=== PATIENT | female | born 1945 | race Caucasian/White ===

== ENCOUNTER 2020-10-14 03:50 | Outpatient (RCR) | payer MEDICARE, OTHER, SELFPAY ==
[2020-10-14] MEDS: COVID-19 VACC, MRNA(PFIZER)/PF 30 MCG/0.3 ML SYRINGE IM (17:06)
[2020-11-04] MEDS: COVID-19 VACC, MRNA(PFIZER)/PF 30 MCG/0.3 ML SYRINGE IM (17:31)
== END 2021-01-18 23:59 ==
LOC: IMMUN 03:50
PROVIDERS: PCP Family Medicine; Visit Provider Family Medicine
DX: Z23 Encounter for immunization (principal)
CPT/HCPCS: 0001A; 0002A; 91300

== ENCOUNTER 2021-09-21 10:30 | Outpatient (RCR) | payer MEDICARE, OTHER, SELFPAY ==
--- NOTE | 2021-07-20 11:15 | HP.PTEVAL ---
Patient's Visit Information FLETCHER ALEJANDRO is a 75 year old F referred to Physical Therapy by Morgan Cabral MD with a diagnosis of Right Shoulder Pain. Date of Evaluation: 07/20/21 Physical Therapist: Cassi Natarajan DPT - Visit Plan Frequency: 2x /Week Duration: 4 Weeks Plan: Right Shoulder- focus on scapular s/s, pain free ROM and ultrasound as modality of choice. HEP Given IE: Postural education, scapular retractions, Wall [place] - Subjective Patient reports that she is unsure if its her cervical spine or her shoulder. She reports pain in the right shoulder since the second injection of COVID. She was diagnosed with RA when she was 25 years old. 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 She had full open heart surgery at 54 years old. Pain is located on the AC joint but the pain that keeps her awake is through the deltoid. Pain radiates to the 3rd and 4th fingers on the right hand. N/T comes and goes. Describes the pain in her shoulder as sharp/shooting. Worst: 8/10 Agg: lifting overhead, sleeping, reaching, driving. Best: 4/10 Eases: bringing it in towards her- Meloxicam and Tylenol. No blurred vision, dizziness, or PALACIO- no neck pain. Decreased bioinformatician strength. Right hand dominate. Sleep: disturbed- hard to get comfortable- side sleeper. Has not had x-rays or MRI of the right shoulder. No injections. Has had shoulder PT prior and it really helped. PMHx: open heart surgery, Total Knee Replacement, RA syndrome, DM Meds: lantis, nitro (PRN), metroprolol, metformin, pantoprozol, lasix, rivostatin, mecoxican, losartin, calcium, vitamin D, Tylenol (PRN), Aspirin - Objective Posture: FH, RS- can correct but does not maintain. Gait: no deviation noted- good arm swing and trunk rotation. Palpation: tender along bicipital groove, AC joint, infraspinatus, deltoid. ROM: WFL in all planes but reports discomfort with full range abduction, flexion and IR behind the back. Strength: Scap: fair minus, Shoulder: 4/5 throughout, Elbow: 4+/5, Wrist: 4+/5, Left and Right Superintendent Overhead Distribution Strength: 55 lbs of -force- discomfort with all testing - Special Tests C/S Radiculapathy - Left Spurlings: Negative C/S Radiculapathy - Right Spurlings: Negative C/S Radiculapathy - Left Cervical distraction: Negative C/S Radiculapathy - Right Cervical distraction: Negative R Shoulder External Rotation Lag Test - RC Tear: Positive R Shoulder Empty Can - SS: Positive R Shoulder Belly Press - SupScap: Positive R Shoulder Neer - Impingement: Positive R Shoulder Ching Lokesh - Impingement: Positive - Balance/Special Test Scores Quick DASH Score: 50.0000 - Goals Goal 1:: Patient will be I with HEP and progression Goal Time Frame: 4-6 Weeks Goal 2:: Patient will maintain proper posture t/o tx session to demo increase scap s/s Goal Time Frame: 4-6 Weeks Goal 3:: Patient will report 75% improvement Goal Time Frame: 4-6 Weeks Goal 4:: Patient will demo full AROM of the right shoulder Goal Time Frame: 4-6 Weeks - Rehabilitation Potential Physical Therapy Diagnosis: Patient presents with hypomobility- she has decreased pain free ROM, UE and scapular strength/stabilization and muscular endurance leading to poor posture and increased pain with ADL's. Rehabilitation Potential: Fair - Anticipated Interventions Patient/Client Instruction: Educate patient on: Benefits of Fitness Program Therapeutic Exercise to Include: Strength training, Endurance training, Balance training, Coordination, Agility training, Body mechanics, Postural training, Flexibilty training, Neuromotor development, Dynamic Lumbar Stabilization, Scapular Strength/Stabilization For the Purpose of:: To improve muscle performance and motor function TENS: Yes Cryotherapy (ice pack, ice massage): Yes Thermo therapy (hot pack): Yes Ultrasound (thermal/non thermal): Yes Thank you for the opportunity to evaluate your patient. For Medicare and Medicare HMO plans, please review the plan of care and approve it. It will need to be FAXED BACK to us at [phone] for Medicare purposes. For Medicare only, by signing this I certify the plan of care. Please let me know if there are questions or concerns regarding this plan of care. Physician Signature: Date:
--- NOTE | 2021-08-25 07:55 | HP.PTREVAL ---
Morgan Cabral MD, It has been my pleasure to treat FLETCHER ALEJANDRO over the last 10 visits for Right Shoulder Pain. Please see the progress note below for an update on the physical therapy plan of care! Subjective: Patient reports that she is better- the pain is less and she is able to do more. 80% back to her normal pain level. The muscle is much softer. She is still having pain with sudden shoulder movements. She is doing her home exercise program- she thinks she could obtain more strength if she continued PT. Objective/Function: Posture: FH, RS- can maintain with verbal cues. Gait: no deviation noted- good arm swing and trunk rotation. Palpation: tender along bicipital groove, AC joint, infraspinatus, deltoid. ROM: WFL in all planes- discomfort with IR behind the back Strength: Scap: fair, Shoulder: 4+/5 throughout, Elbow: 4+/5, Wrist: 4+/5. C/S Radiculapathy - Left Spurlings: Negative. C/S Radiculapathy - Right Spurlings: Negative. C/S Radiculapathy - Left Cervical distraction: Negative. C/S Radiculapathy - Right Cervical distraction: Negative. R Shoulder External Rotation Lag Test - RC Tear: Positive. R Shoulder Empty Can - SS: Positive. R Shoulder Belly Press - SupScap: Positive. R Shoulder Neer - Impingement: Positive. R Shoulder Ching Lokesh - Impingement: Negative Plan Plan: 08/25/21:Continue with scapular strength/stabilization- has current HEP please progress past HEP. Right Shoulder- focus on scapular s/s, pain free ROM and ultrasound as modality of choice Balance/Gait/Functional tests - Balance/Special Test Scores Quick DASH Score: 25.0000 Goals Goal 1:: Patient will be I with HEP and progression Goal Time Frame: 4-6 Weeks Goal Progress: Progressing Goal 2:: Patient will maintain proper posture t/o tx session to demo increase scap s/s Goal Time Frame: 4-6 Weeks Goal Progress: Progressing Goal 3:: Patient will report 75% improvement Goal Time Frame: 4-6 Weeks Goal Progress: Goal Met Goal 4:: Patient will demo full AROM of the right shoulder Goal Time Frame: 4-6 Weeks Goal Progress: Goal Met Anticipated Interventions Patient/Client Instruction: Educate patient on: Benefits of Fitness Program Therapeutic Exercise to Include: Strength training, Endurance training, Balance training, Coordination, Agility training, Body mechanics, Postural training, Flexibilty training, Neuromotor development, Dynamic Lumbar Stabilization, Scapular Strength/Stabilization For the Purpose of:: To improve muscle performance and motor function TENS: Yes Cryotherapy (ice pack, ice massage): Yes Thermo therapy (hot pack): Yes Ultrasound (thermal/non thermal): Yes Please do not hesitate to contact me at [phone] by phone or if you have questions or concerns regarding this new plan of care! Sincerely, PARVEZ AlexisT
--- NOTE | 2021-09-21 10:55 | HP.PTDCSUM ---
It has been my pleasure to treat FLETCHER ALEJANDRO referred by Morgan Cabral MD, with the diagnosis of Right Shoulder Pain for a total of 18 visit(s). Discharge Date: Please see the following information for a summary of their discharge status. Subjective: Patient reports that she is doing great- she feels that she can perform all the exercises at home with her bands. She is sleeping at night and can roll over without pain. She can reach- but pops and clicks. 09/22 after shoveling snow Right Shoulder Pain Intensity (Out of 10): 1 % Improvement: 100 Objective/Function: Posture: good throughout. Gait: no deviation noted- good arm swing and trunk rotation. Palpation: not tender to touch ROM: WFL in all planes no pain Strength: Scap: fair, Shoulder: 4+/5 throughout, Elbow: 4+/5, Wrist: 4+/5. C/S Radiculapathy - Left Spurlings: Negative. C/S Radiculapathy - Right Spurlings: Negative. C/S Radiculapathy - Left Cervical distraction: Negative. C/S Radiculapathy - Right Cervical distraction: Negative. R Shoulder External Rotation Lag Test - RC Tear: Positive. R Shoulder Empty Can - SS: Positive. R Shoulder Belly Press - SupScap: Positive. R Shoulder Neer - Impingement: Positive. R Shoulder Ching Lokesh - Impingement: Negative Goal 1:: Patient will be I with HEP and progression Goal Progress: Goal Met Goal 2:: Patient will maintain proper posture t/o tx session to demo increase scap s/s Goal Progress: Goal Met Goal 3:: Patient will report 75% improvement Goal Progress: Goal Met Goal 4:: Patient will demo full AROM of the right shoulder Goal Progress: Goal Met Plan: 09/21/2021: Discharge to continue HEP. 08/25/21:Continue with scapular strength/stabilization- has current HEP please progress past HEP. Right Shoulder- focus on scapular s/s, pain free ROM and ultrasound as modality of choice If there are questions or concerns regarding this patient's physical therapy, please feel free to call me at [phone]. Thank you for the referral of this patient. Sincerely, Cassi Natarajan, PARVEZT Balance/Gait/Functional tests - Balance/Special Test Scores Quick DASH Score: 11.3625
== END 2021-09-21 12:17 | disposition home or self-care (01) ==
LOC: PT 10:30
PROVIDERS: PCP Family Medicine; Referring Provider Family Medicine; Visit Provider Family Medicine
DX: M25.511 Pain in right shoulder (principal); G89.29 Other chronic pain
CPT/HCPCS: 97035; 97110; 97162; 97164

== ENCOUNTER → 2022-10-18 | Outpatient (CLI) | payer MEDICARE, OTHER, SELFPAY ==
--- NOTE | 2022-10-18 16:59 | RAD_ITS ---
EXAM: XR RIGHT HIP WITH PELVIS WHEN PERFORMED, 1 VIEW CLINICAL INDICATION: PAIN TECHNIQUE: Frontal view of the right hip with pelvis when performed. This report was created using [employer] report generation technology. COMPARISON: None. 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 And with bony remodeling on both sides of the articulation, more prominent on the femoral side. Moderate osteoarthrosis of the left hip joint. Degenerative changes spine are incompletely imaged. No displaced fracture. No destructive or sclerotic lesions. Note that overlapping bowel shadows may however obscure fine detail. Sacroiliac joint is unremarkable. No widening of the pubic symphysis. SOFT TISSUES: Unremarkable. No soft tissue swelling or gas. VASCULATURE: Multiple phleboliths in the pelvis. GASTROINTESTINAL TRACT: Stool and gas throughout the colon. 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 And with bony remodeling on both sides of the articulation, more prominent on the femoral side. Electronically Signed: Lang Ellis MD at 2:48 EST ,
== END | disposition home or self-care (01) ==
LOC: MTRAD 16:58
PROVIDERS: PCP Family Medicine; Visit Provider Nurse Practitioner Family
DX: M25.551 Pain in right hip (principal)
CPT/HCPCS: 73502

== ENCOUNTER 2022-12-04 09:00 | Outpatient (RCR) | payer MEDICARE, OTHER, SELFPAY ==
--- NOTE | 2022-11-02 12:39 | HP.PTEVAL ---
Patient's Visit Information FLETCHER ALEJANDRO is a 76 year old F referred to Physical Therapy by Dr. Jonh Cabral MD with a diagnosis of OA R HIP. Date of Evaluation: 11/02/22 Physical Therapist: Cyndy Michael PT, Cert MDT - Visit Plan Frequency: 2-3x /Week Duration: 4-6 Weeks Plan: AQUATIC THERPAY STARTING VERY VERY SLOW DUE TO PATIENTS RECENT EXPERIENCE OF DELAYED ONSET PAIN WITH [facility] FOR HER BACK. R THR REHAB INCLUDING GAIT TRAINING, LE ROM, STRETCHING AND STRENGTHENING. DLS WITH NEUTRAL SPINE ONLY. - Subjective PATIENT REPORTS SHE IS SCHEDULED FOR R THR WITH DR. CABRAL 12/30/2022. Present symptoms: R HIP PAIN. RIGHT SI JOINT AREA PAIN, R GROIN PAIN, PAIN DOWN RIGHT LEG INTO KNEE AND TRAN. RECENT HISTORY R FOOT PAIN JUL 2022. PATIENT DENIES NUMBNESS OR TINGLING AND REPORTS CONSTANT PAIN. Present since: JUN 2022. Pain Scale: WORST 8/10, LEAST 5/10. Currently: 6/10. Is it getting better, worse or staying the same: STAYING THE SAME. Commenced as a result of: FELL ASLEEP IN RECLINER AFTER HAVING COMPANY AND COOKING THANKSGIVING DINNER. STATES HER R FOOT WAS STUCK BETWEEN THE FOOT REST AND ARM REST WHEN SHE WOKE UP. DOESN'T USUALLY SLEEP IN THE RECLINER. STATES SHE WAS PLAYING MATCH BOX CARS ON THE FLOOR WITH GRANDKIDS BEFORE SHE FELL ASLEEP. Symptoms at onset: R SI JOINT AREA. Worse: ANYTHING THAT PUTS PRESSURE ON R SIDE OF BODY. CAN'T LAY ON R SIDE. SOME PAIN WITH STANDING AND WALKING. Better: GABAPENTIN AND ARTHRITIS MEDS. SITTING PROBABLY FEELS THE BEST BUT THE PAIN NEVER GOES AWAY. Disturbed sleep: YES. Previous history/Previous treatment: UNREMARKABLE. Treatment this episode: PT AT [place] X 9 SESSIONS FOR SI JOINT. SHARP PAIN AND CRACK IN R HIP LAST PT SESSION. CONSULT WITH DR. 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 DR. BENTLEY REFERRED PATIENT TO DR. EARLY FOR PAIN CONTROL THEN HAD HIP X-RAY AND WAS REFERRED TO DR. CABRAL AND NOW R THR PENDING IN DECEMBER 2022. NO LUMBAR OR HIP INJECTIONS. PLANNING TO HAVE CAUDAL BY DR. EARLY PRIOR TO R THR. TRIED SI BELT AND IT MADE HER WORSE SO SHE STOPPED WEARING IT. Gait: USING ROLLATOR TO GET AROUND AND SOMETIMES CANE IN THE HOUSE. Bowel or Bladder Dysfunction: INCONTINENT - BOWEL AND BLADDER BUT MOSTLY BLADDER SINCE POST HYSTERECTOMY 2008. BOWEL INCONTINENCE IS EXTREMELY RARE PER PATIENT REPORT. Unexplained weight loss: NO. OTHER: PATIENT REPORTS DR. CABRAL RECOMMENDS AQUATIC THERAPY. PMHx: open heart surgery, L Total Knee Replacement, IDDM, SI JOINT DYSFUNCTION RECENTLY TREATED IN PT IN [place]. LOW BACK PAIN/ARTHRITIS. AGE 29 DX'D WITH RA SECONDARY TO CONTROL PILL BUT CHANGED RA TO OA DX. X-ray 10/18/22: End-stage right hip osteoarthrosis with large subchondral cyst at the. acetabularr roof. And with bony remodeling on both sides of the. articulation, more prominent on the femoral side. PATIENT ALSO REPORTS HAVING RECENT LUMBAR X-RAY IN [place] SHOWING MILD TO MOD ARTHRITIS AND OTHER. SHE ALSO STATES DR. BENTLEY THINKS THE ARTHRITIS IN HER LOW BACK IS PRETTY SEVERE BUT BACK SURGERY NOT RECOMMENDED. - Objective POSTURE: SCOLIOSIS. RIGHT ILIAC CREST HIGHER THAN LEFT. GAIT: THIS PATIENT AMBULATES INDEP'LY INTO PT TODAY X APPROX 150 FEET WITH ROLLATOR, DECREASED CADANCE AND SIGNIFICANT LIMP ON THE RLE. NO LOB. LUMBAR MVMT LOSS: FLEX - MOD. EXT - MAJOR - PROVOKES R HIP PAIN JUST WITH POSTURE CORRECTION. R SG - CHARLES. L SG - CHARLES. PATIENT DENIES INCREASED PAIN WITH LUMBAR ROM TESTING EXCEPT INTO EXTENSION WITH JUST POSTURE CORRECTION. DURAL SIGNS: POSITIVE R LE. WOMAC score: 60/96. TU.31 SEC. ROM: BILLY LE HIP, KNEE AND ANKLE DECREASED ROM BUT L LE WFL. PATIENT UNABLE TO FULLY EXTEND R HIP OR KNEE. L MMT: HIP 4/5, KNEE 4/5, ANKLE 5/5. R LE: HIP 3-/5, KNEE 3-/5, ANKLE 4/5. Sensory deficit: BILLY LE LIGHT TOUCH SENSATION GROSSLY INTACT AND SYMMETRICAL. PALPATION: PATIENT DOES NOT WANT ANY PRESSURE - Balance/Special Test Scores Lower Extremity Functional Score: 19 TUG Test Time Seconds: 53.26 30 Second Chair Rise Test Seconds: 6 WOMAC Total Score: 60 WOMAC Percentatge: 37.5000 - Goals Goal 1:: PATIENT WILL AMBULATE 350 FEET WITH ROLATOR INDEP'LY TO IMPROVE ACTIVITY TOLERANCE. Goal Time Frame: 4-6 Weeks Goal 2:: PATIENT WILL COMPLETE 8 STANDS IN 30 SECS TO DEMONSTRATE IMPROVED FUNCTIONAL STRENGTH Goal Time Frame: 4-6 Weeks Goal 3:: PATIENT WILL COMPLETE TUG IN < 30 SECS TO DEMONSTRATE IMPROVED GAIT STABILITY Goal 4:: PATIENT WILL BE INDEP WITH A WATER EX PROGRAM FOR CONTINUED IMPROVEMENT ONCE FORMAL PHYSICAL THERAPY CONCLUDES. Goal Time Frame: 4-6 Weeks - Anticipated Interventions Patient/Client Instruction: Educate patient on: Condition, Plan of Care, Risk Factors For the Purpose of:: To improve self management Therapeutic Exercise to Include: Strength training, Body mechanics, Postural training, Flexibilty training, Gait and locomotor training, Neuromotor development, In an aquatic setting, Dynamic Lumbar Stabilization For the Purpose of:: To decrease pain, To increase ROM, To improve muscle performance and motor function, To increase tolerance to activity/condition/position, To improve ability of physical actions for home/community/work/leisure, To improve gait and locomotor functions Thank you for the opportunity to evaluate your patient. For Medicare and Medicare HMO plans, please review the plan of care and approve it. It will need to be FAXED BACK to us at [phone] for Medicare purposes. For Medicare only, by signing this I certify the plan of care. Please let me know if there are questions or concerns regarding this plan of care. Physician Signature: Date:
--- NOTE | 2022-12-04 12:57 | HP.PTDCSUM_ITS ---
It has been my pleasure to treat FLETCHER ALEJANDRO referred by Dr. Jonh Cabral MD, with the diagnosis of OA R HIP for a total of 9 visit(s). Discharge Date: 12/04/22 Please see the following information for a summary of their discharge status. Subjective: PATIENT REPORTS THE INJECTION DR. Edwards GAVE HER ABOUT A WEEK AGO HELPED HER BACK BUT SHE NOTICES HER HIP PAIN MORE NOW. OVER-ALL SHE REPORTS SHE FEELS SHE IS DOING BETTER AND LOVES THE WATER EX. STATES SHE FEELS SHE CAN CONTINUE WATER EX ON HER OWN NOW. PATIENT REPORTS SHE CAN ACTUALLY SPREAD HER LEGS MORE NOW SINCE HAVING PT. PATIENT ALSO REPORTS SHE HAS BEEN ABLE TO CORRECT HER GAIT TO HAVE LESS SHARP PAINS IN HER HIP WHEN WALKING. GETTING IN BED IS STILL DIFFICULT BUT LESS PAINFUL. Right hip Pain Intensity (Out of 10): 7 LBP Pain Intensity (Out of 10): 2 % Improvement: 70 Objective/Function: PATIENT WAS SEEN TODAY FOR RE-ASSESSMENT OF PROGRESS TOWARD THE SET PT GOALS AND THE NEED FOR FURTHER PHYSICAL THERAPY VS READINESS FOR DISCHARGE. UPON EXAM TODAY: LUMBAR MVMT LOSS: FLEX - MOD. EXT - MAJOR. R SG - CHARLES. L SG - CHARLES. PATIENT DENIES INCREASED PAIN WITH LUMBAR ROM TESTING. DURAL SIGNS: POSITIVE R LE. WOMAC score: 54/96. TU.89 WITH ROLLATOR. ROM: BILLY LE HIP, KNEE AND ANKLE DECREASED ROM BUT L LE WFL. PATIENT UNABLE TO FULLY EXTEND R HIP OR KNEE. L MMT: HIP 4/5, KNEE 4/5, ANKLE 5/5. R LE: HIP 3- /5, KNEE 3-/5, ANKLE 4/5. Sensory deficit: BILLY LE LIGHT TOUCH SENSATION GROSSLY INTACT AND SYMMETRICAL. [ End ] Goal 1:: PATIENT WILL AMBULATE 350 FEET WITH ROLATOR INDEP'LY TO IMPROVE ACTIVITY TOLERANCE. Goal Progress: Goal Met Goal 2:: PATIENT WILL COMPLETE 8 STANDS IN 30 SECS TO DEMONSTRATE IMPROVED FUNCTIONAL STRENGTH Goal Progress: Goal Met Goal 3:: PATIENT WILL COMPLETE TUG IN < 30 SECS TO DEMONSTRATE IMPROVED GAIT STABILITY Goal Progress: Progressing Goal 4:: PATIENT WILL BE INDEP WITH A WATER EX PROGRAM FOR CONTINUED IMPROVEMENT ONCE FORMAL PHYSICAL THERAPY CONCLUDES. Goal Progress: Goal Met Plan: D/C TO INDEP EX. PATIENT IS AGREEABLE AND PLANS TO USE A POOL CLOSER TO HER NEW HOME. If there are questions or concerns regarding this patient's physical therapy, please feel free to call me at [phone]. Thank you for the referral of this patient. Sincerely, Cyndy Michael, PT, Cert MDT Balance/Gait/Functional tests - Balance/Special Test Scores Lower Extremity Functional Score: 19 TUG Test Time Seconds: 33.89 Tug Test: 20-30sec.=variable mobility 30 Second Chair Rise Test Seconds: 10 WOMAC Total Score: 54 WOMAC Percentage: 43.7500
== END 2022-12-04 19:00 | disposition home or self-care (01) ==
LOC: PT 09:00
PROVIDERS: PCP Family Medicine; Referring Provider Specialist; Visit Provider Specialist
DX: M16.11 Unilateral primary osteoarthritis, right hip (principal); M25.651 Stiffness of right hip, not elsewhere classified; R53.1 Weakness
CPT/HCPCS: 97113; 97162; 97164

== ENCOUNTER → 2022-12-26 | Outpatient (CLI) | payer MEDICARE, OTHER, SELFPAY ==
--- NOTE | 2022-12-26 06:14 | ECHOCS_ITS ---
Reason For Study: CAD/ASHD Procedure This was a 2D Doppler, Color Flow transthoracic echocardiogram. The study was technically difficult. Contrast injection was performed. Exam performed in department. Left Ventricle Normal LV size. Mild concentric left ventricular hypertrophy. The estimated ejection fraction is 55 %. Segmental dysfunction with preserved ejection fraction (see wall motion). Stage 1 diastolic dysfunction. Revloc : Dyskinetic. Anterior Revloc : Akinetic. Right Ventricle Normal RV size. Normal systolic function. Atria Normal left atrium. Normal right atrium. Mitral Valve Normal mitral valve. Tricuspid Valve Normal tricuspid valve. Aortic Valve The aortic valve is not well visualized. Pulmonic Valve The pulmonic valve is not well visualized. Great Vessels Normal aortic root. The pulmonary artery is normal size. Normal inferior vena cava. Pericardium/Pleural No pericardial effusion. Medication Diluted definity 4ml given slow IV push to enhance endocardial definition. MMode/2D Measurements & Calculations LVIDd: 4.7 cm IVSd: 1.4 cm Ao root diam: 3.2 cm LVIDs: 3.1 cm LVPWd: 1.4 cm FS: 34.3 % LAV(MOD-bp): 52.3 ml LVAd ap4: 36.8 cm2 SV(MOD-sp4): 67.4 ml LAV(MOD-bp) Indexed: 35.5 ml/m2 LVLd ap4: 8.0 cm LAV(MOD-sp2): 56.5 ml EDV(MOD-sp4): 142.7 ml LAV(MOD-sp4): 47.9 ml EDV(sp4-el): 146.5 ml LVAs ap4: 26.0 cm2 LVLs ap4: 7.5 cm ESV(MOD-sp4): 75.2 ml ESV(sp4-el): 78.0 ml EF(MOD-sp4): 47.3 % EF(sp4-el): 46.8 % SV(sp4-el): 68.5 ml LA A4 area: 17.3 cm2 LA dimension(2D): 3.9 cm RA A4 area: 13.0 cm2 Time Measurements MV dec time: 0.20 sec Doppler Measurements & Calculations MV E max brian: 47.6 cm/sec Lat Peak E' Brian: 6.0 cm/sec Med Peak E' Brian: 4.4 cm/sec MV A max brian: 108.9 cm/sec E/E' lat: 8.0 E/E' med: 10.8 MV E/A: 0.44 MV V2 max: 106.8 cm/sec MV dec slope: 274.1 cm/sec2 Ao V2 max: 137.4 cm/sec MV max P.6 mmHg Ao max P.6 mmHg MV V2 mean: 55.0 cm/sec Ao V2 mean: 92.4 cm/sec MV mean P.4 mmHg Ao mean P.0 mmHg MV V2 VTI: 35.4 cm Ao V2 VTI: 35.2 cm AV (velocity ratio): 0.75 LV V1 max: 104.5 cm/sec PA V2 max: 91.7 cm/sec LV V1 max P.4 mmHg PA V2 mean: 63.1 cm/sec LV V1 mean P.2 mmHg LV V1 mean: 68.4 cm/sec LV V1 VTI: 26.4 cm ECHO/Echo Complete W/ Contrast Interpretation Summary Normal LV size. The estimated ejection fraction is 55 %. Mild concentric left ventricular hypertrophy. Stage 1 diastolic dysfunction. Segmental dysfunction with preserved ejection fraction (see wall motion). Contrast injection was performed. Ordering Physician: Sanya Son Referring Physician: Sanya Son Performed By: Angelic Medeiros RCS
--- NOTE | 2022-12-26 12:33 | STRESSREP ---
Stress Test Report Pharmacologic myocardial perfusion stress test. 76-year-old lady with a history of coronary artery disease for preoperative surgical hip clearance Resting EKG demonstrates sinus bradycardia with a rate of 55 bpm. Resting blood pressure is 162/68 mmHg. 0.4 mg of regadenoson was infused per usual protocol followed by rapid intravenous saline flush injection. Continuous EKG monitoring was performed. The maximum heart rate was 95 bpm which was 65% of max impacted heart rate the maximum workload was 1 metabolic equivalent. At rest there were no ST or T wave changes noted to suggest ischemia and at peak infusion nonspecific ST changes were noted which did not meet the criteria for ischemia. No clinical angina is noted. The final blood pressure was 142/80 mmHg. Myocardial perfusion protocol. 11.2 mCi of technetium 99m sestamibi was injected at rest. 0.4 mg of regadenoson was infused per usual protocol. At peak infusion 32.8 mCi of technetium 99m sestamibi was injected stress images were obtained stress and rest images were reconstructed and compared in the short axis vertical long and horizontal long axis. Gated images were also obtained. Perfusion SPECT analysis: Review of the stress images demonstrate normal uptake of tracer noted in all areas of the myocardium except for the mid anterior wall, apex and anteroseptal wall with a defect. The resting images similar demonstrated normal uptake of tracer noted in all areas of the myocardium except for the above named roberto. The above is suggestive of a previous anterior septal, anterior and apical infarct. No reversibility is noted to suggest ischemia. Gated SPECT analysis: The gated ejection fraction is 46%. Conclusion: Myocardial pharmacologic stress test with evidence of previous anteroseptal, anterior, and apical infarct. No ischemia is noted. Low ejection fraction is present.
== END | disposition home or self-care (01) ==
LOC: CVS 06:12
PROVIDERS: PCP Family Medicine; Referring Provider Internal Medicine Cardiovascular Disease; Visit Provider Internal Medicine Cardiovascular Disease
DX: I25.10 Atherosclerotic heart disease of native coronary artery without angina pectoris (principal)
CPT/HCPCS: 78452; 93017; 93306; A9500; Q9957; A4216; C8929; J2785

== ENCOUNTER → 2024-02-28 | Outpatient (CLI) | payer MEDICARE, OTHER, SELFPAY ==
--- NOTE | 2024-02-28 09:14 | BD_ITS ---
STUDY: DUAL ENERGY X-RAY ABSORPTIOMETRY / DXA REASON FOR EXAM: Female, 78 years old. [id number] TECHNIQUE: Bone Mineral Density (BMD) measurements of lumbar spine and left hip were obtained. COMPARISON: None. FINDINGS: Lumbar Spine (L1-L4): g/cm2 (0.836) / T-score (-1.7) / Z-score (0.8) Findings are suggestive of osteopenia with a moderate fracture risk. Left Femur Total: g/cm2 (0.695) / T-score (-2.0) / Z-score (-0.2) Left Femoral Neck: g/cm2 (0.543) / T-score (-2.8) / Z-score (-0.6) BD/Dexa Bone Density Study IMPRESSION: The patient is considered osteoporotic as outlined below according to World [employer] Organization (WHO) criteria with a high fracture risk. Reference Information: The T-score is the number of standard deviations above or below the standard which is normal for young adults at their peak bone mineral density. The World Health Organization (WHO) interprets the T-scores as follows: Above -1 Normal bone density Between -1 and -2.5 Osteopenia Equal to / or below -2.5 Osteoporosis As a practical clinical guideline, osteopenia may be graded as follows: Mild -1 through -1.5 Moderate -1.6 through -2.0 Severe -2.1 through -2.4 The Z-score is the number of standard deviations above or below age-matched controls. A Z-score of less than -1.5 would be considered abnormal. References: 1. NIH Osteoporosis and Related Bone Diseases www osteo.org 2. International Society for Clinical Densitometry www iscd.org 3. National Osteoporosis Foundation www nof.org Electronically Signed: Jose Fierro MD at 7:59 EDT ,
== END | disposition home or self-care (01) ==
LOC: OPBD 08:59
PROVIDERS: PCP Family Medicine; Referring Provider Family Medicine; Visit Provider Family Medicine
DX: Z78.0 Asymptomatic menopausal state (principal)
CPT/HCPCS: 77080